=== PATIENT | male | born 1955 | race Caucasian/White ===

== ENCOUNTER 2017-03-13 18:42 | Emergency (ER) | payer OTHER ==
[~2017-03-13] VITALS: Ht 177.8 cm; Wt 87.0 kg
[2017-03-13 18:45] VITALS: BP 192/100; PULSE 90; RESP 13; TEMP 101.2; O2SAT 95
[2017-03-13 19:09] VITALS: BP 148/102; PULSE 96; RESP 18; O2SAT 95
[2017-03-13 22:31] VITALS: BP 158/105; PULSE 92; RESP 18; TEMP 98.7; O2SAT 99
--- NOTE | 2017-03-13 23:03 | RADRPT ---
EXAM DATE/TIME: 03/13/2017 22:51 [place] COMPARISON: No previous studies available for comparison. INDICATIONS : Fever MEDICAL HISTORY : None. SURGICAL HISTORY : None. ENCOUNTER: Initial ACUITY: 3 days PAIN SCORE: 0/10 LOCATION: chest FINDINGS: A single view of the chest demonstrates the lungs to be symmetrically aerated without evidence of mas s, infiltrate or effusion. The cardiomediastinal contours are unremarkable. Osseous structures are intact. CONCLUSION: No acute disease. Tani Dc MD on March 13, 2017 at 23:01 Board Certified Radiologist. This report was verified electronically.
[2017-03-13 23:06] LABS: AUTOMATED NEUTROPHIL # 2.7 TH/MM3 (1.8-7.7); BASOPHIL % 0.3 % (0.0-2.0); EOSINOPHIL % 0.1 % (0.0-4.0); HEMATOCRIT 45.3 % (39.0-51.0); HEMO FLAGS DIFF FINAL; LYMPH % 18.5 % (9.0-44.0); LYMPHOCYTE # 0.7 TH/MM3 (1.0-4.8); MEAN CELL VOLUME 92.6 FL (80.0-100.0); MEAN CORPUSCULAR HEMOGLOBIN 32.2 PG (27.0-34.0); MEAN CORPUSCULAR HGB CONC 34.8 % (32.0-36.0); MONO % 8.2 % (0.0-8.0); NEUT % 72.9 % (16.0-70.0); PLATELET COUNT 165 TH/MM3 (150-450); RED CELL DISTRIBUTION WIDTH 13.5 % (11.6-17.2); WHITE BLOOD COUNT 3.7 TH/MM3 (4.0-11.0)
--- NOTE | 2017-03-13 23:20 | PD ---
HPI Chief Complaint: Fever Time Seen by Provider: 22:27 Travel History International Travel<30 days: No Contact w/Intl Traveler<30days: No Traveled to known affect area: No History of Present Illness HPI Patient is a 61-year-old male presenting to the emergency department evaluation of fevers, body aches, congestion. Patient states it started on Tuesday when his max temp was 101.5. At that time it was accompanied by nausea and vomiting which has resolved. On he felt better, Tuesday the fever returned with a max temp 102 accompanied by a sore throat. Patient states his max temp was 103 yesterday, it is controlled with ibuprofen however he returns in today his max temp was 102.5. He reports nasal congestion, runny nose. He denies any cough, abdominal pain, chest pain, diarrhea, dysuria. He does report generalized body aches. PFSH Past Medical History Cardiovascular Problems: Yes (TACHYCARDIA) Diminished Hearing: No Past Surgical History Abdominal Surgery: Yes (HERNIA REPAIR) Appendectomy: Yes Cholecystectomy: Yes Social History Alcohol Use: Yes Tobacco Use: No Substance Use: No Allergies-Medications (Allergen,Severity, Reaction): Coded Allergies: No Known Allergies (Unverified , 03/13/17) Reported Meds & Prescriptions Reported Meds & Active Scripts Active Active Prescriptions or Reported Medications Unobtainable Review of Systems Except as stated in HPI: all other systems reviewed are Neg General / Constitutional: Positive: Fever, Chills HENT: Positive: Rhinitis, Congestion, No: Headaches Respiratory: No: Cough Gastrointestinal: No: Nausea, Vomiting, Diarrhea, Abdominal Pain Genitourinary: No: Dysuria Musculoskeletal: Positive: Myalgias Physical Exam Narrative GENERAL: Well-developed, well-nourished, alert occasion male. Resting comfortably in no acute distress. SKIN: Warm and dry. HEAD: Atraumatic. Normocephalic. EYES: Pupils equal and round. No scleral icterus. No injection or drainage. ENT: No nasal bleeding or discharge. Mucous membranes pink and moist. No tonsillar enlargement, airway is patent. NECK: Trachea midline. No JVD. CARDIOVASCULAR: Regular rate and rhythm. RESPIRATORY: No accessory muscle use. Clear to auscultation. Breath sounds equal bilaterally. GASTROINTESTINAL: Abdomen soft, non-tender, nondistended. Hepatic and splenic margins not palpable. MUSCULOSKELETAL: Extremities without clubbing, cyanosis, or edema. No obvious deformities. NEUROLOGICAL: Awake and alert. No obvious cranial nerve deficits. Motor grossly within normal limits. Five out of 5 muscle strength in the arms and legs. Normal speech. PSYCHIATRIC: Appropriate mood and affect; insight and judgment normal. Data Data Last Documented VS Vital Signs Date Time Temp Pulse Resp B/P (MAP) Pulse Ox O2 Delivery O2 Flow Rate FiO2 03/13/17 22:31 Room Air 03/13/17 22:31 98.7 92 18 158/105 (122) 99 Orders Orders Complete Blood Count With Diff (03/13/17 22:37) Basic Metabolic Panel (Bmp) (03/13/17 22:37) Influenzae A/B Antigen (03/13/17 22:37) Chest, Single Ap (03/13/17 22:37) Labs Laboratory Tests Test 03/13/17 22:50 White Blood Count 3.7 TH/MM3 Red Blood Count 4.90 MIL/MM3 Hemoglobin 15.8 GM/DL Hematocrit 45.3 % Mean Corpuscular Volume 92.6 FL Mean Corpuscular Hemoglobin 32.2 PG Mean Corpuscular Hemoglobin Concent 34.8 % Red Cell Distribution Width 13.5 % Platelet Count 165 TH/MM3 Mean Platelet Volume 6.6 FL Neutrophils (%) (Auto) 72.9 % Lymphocytes (%) (Auto) 18.5 % Monocytes (%) (Auto) 8.2 % Eosinophils (%) (Auto) 0.1 % Basophils (%) (Auto) 0.3 % Neutrophils # (Auto) 2.7 TH/MM3 Lymphocytes # (Auto) 0.7 TH/MM3 Monocytes # (Auto) 0.3 TH/MM3 Eosinophils # (Auto) 0.0 TH/MM3 Basophils # (Auto) 0.0 TH/MM3 CBC Comment DIFF FINAL Differential Comment Blood Urea Nitrogen 15 MG/DL Creatinine 1.34 MG/DL Random Glucose 92 MG/DL Calcium Level 8.7 MG/DL Sodium Level 138 MEQ/L Potassium Level 3.7 MEQ/L Chloride Level 104 MEQ/L Carbon Dioxide Level 28.5 MEQ/L Anion Gap 6 MEQ/L Estimat Glomerular Filtration Rate 54 ML/MIN MDM Medical Decision Making Medical Screen Exam Complete: Yes Emergency Medical Condition: Yes Interpretation(s) Vital Signs Date Time Temp Pulse Resp B/P (MAP) Pulse Ox O2 Delivery O2 Flow Rate FiO2 10/8/17 22:31 Room Air 03/13/17 22:31 98.7 92 18 158/105 (122) 99 03/13/17 19:09 96 18 148/102 (117) 95 03/13/17 18:45 101.2 90 13 192/100 (130) 95 Differential Diagnosis URI versus influenza versus bronchitis versus pneumonia versus other Narrative Course Patient presented for evaluation of 4 days of fevers, body aches and intermittent sore throat. He took ibuprofen at 6 PM. Patient is currently afebrile and his vital signs are stable. Labs ordered and pending CBC with no acute findings, chemistry reviewed and is unremarkable. Influenza in negative. CXR read by radiologist is negative for acute abnormality. Abdominal exam is benign. At this time findings appear most consistent with a viral illness. Pt is encouraged to continue symptom management. Pt was also done symptom management. He was encouraged to follow-up with his primary doctor in 1-2 days. He was encouraged also to return to the department if needed for any new or worsening symptoms. He verbalized understanding of instructions. Patient stable for discharge. Diagnosis Primary Impression: Viral illness Referrals: Primary Care Physician 2 days Patient Instructions: General Instructions, Viral Syndrome (ED) Additional Instructions: Follow up with your primary doctor in 1-2 days Continue symptom management Maintain fluid intake Take ibuprofen as needed and as directed for fevers/body aches Return to the emergency department for any new or worsening symptoms. Med/Other Pt SpecificInfo: No Change to Meds Scripts Unable to Obtain Active Prescriptions or Reported Meds Disposition: 01 DISCHARGE HOME Condition: Stable Siena Balbuena [facility] Mar 13, 2017 23:20
[2017-03-13 23:26] LABS: BICARBONATE 28.5 MEQ/L (21.0-32.0); POTASSIUM 3.7 MEQ/L (3.5-5.1)
== END 2017-03-14 00:13 | disposition home or self-care (01) ==
LOC: NEPD 18:42
DX: B34.9 Viral infection, unspecified (principal); R00.0 Tachycardia, unspecified
CPT/HCPCS: 71010; 80048; 85025; 87804; 99284